=== PATIENT | male | born 1975 | race African-American/Black ===

== ENCOUNTER 2025-04-18 18:46 | Emergency (ER) | payer MEDICAID ==
[~2025-04-18] VITALS: Ht 175.3 cm; Wt 134.4 kg
[~2025-04-18 18:46] MED LIST: CELE-193 PO; CYCL-394 PO; HYDR12.522 PO
--- NOTE | 2025-04-18 20:50 | Physician Documentation ---
History of Present Illness ~ Chief Complaint: Medical Clearance Stated Complaint: "I NEED A NOTE TO GET INTO DETOX TONIGHT" Time Seen by MD: 20:44 Primary Medical Doctor: Julian Mode of Arrival: POV HPI This is a 50-year-old male with history of methamphetamine abuse who presents requesting medical clearance to enter [facility], patient reports no other drug use including no opioids or alcohol. Patient reports last use of methamphetamine one day prior. Patient reports only other past medical history is hypertension which he is compliant with prescribed medications. Patient reports no other acute symptoms or concerns and reports feels otherwise well. Tetanus within 5 years?: Yes Medication Reconciliation Allergies: Coded Allergies: No Known Allergies (Unverified , 04/18/25) Scheduled Celecoxib* (Celebrex*), 100 MG PO BID Cyclobenzaprine HCl (Cyclobenzaprine HCl), 10 MG PO TID PRN MUSCLE SPASM Hydrochlorothiazide* (Microzide*), 25 MG PO DAILY Past Medical History Past Medical History: Hypertension, Sleep Apnea Past Surgical History: orthopedic surgeries Alcohol Use: None Drug Use: marijuana, methamphetamine Review of Systems ROS As stated above in the HPI, otherwise all systems are reviewed and negative. Physical Exam Vital Signs: Temperature: 98.0, Heart Rate: 76, Respiratory Rate: 16, BP: 170/93, Pulse Oximetry: 99, Weight: 134.450 Oxygen Flow Rate: 0 Physical Exam VITALS: Reviewed and as above. GENERAL: Alert oriented x4, nontoxic appearing, no apparent distress. HEENT: PERRLA, EOMI RESPIRATORY: No increased work of breathing, no respiratory distress, speaking in full clear sentences, clear lung sounds in all [place] CV: Regular rate and rhythm no murmur BACK: No CVA tenderness GI: Soft, nontender, no rebound, no guarding, bowel sounds present MUSCULOSKELETAL: NEURO: No tremor PSYCH: Normal mood and affect, no agitation, no statements of SI or HI Progress Results/Orders Results/Orders Vital Signs 04/18/25 04/18/25 04/18/25 18:56 19:55 21:10 Temp 98.0 98.3 Pulse 76 78 Resp 18 16 16 B/P (MAP) 170/93 162/82 Pulse Ox 99 99 O2 Flow Rate 0 Medical Decision Making Findings This 50-year-old male with history of methamphetamine abuse presented requesting medical clearance to enter rehab program, patient reported no other acute symptoms or concerns. As patient reported no history of alcohol or opioid abuse and is not displaying any evidence of clinical withdrawal it have low suspicion for risk of opioid or alcohol withdrawal causing complications, patient is well- appearing with benign physical exam and appropriate for outpatient follow up. Patient is medically cleared to enter rehab program. Patient provided return to care precautions which he verbalized understanding of. Differential Dx:Considerations: Include: Intoxication-Alcohol, Intoxication-O ther drug, Personality disorder, Substance abuse disorder, Alcohol withdrawl syndrom Departure Time of Disposition: 20:49 Disposition: 01 HOME / SELF CARE / HOMELESS Impression: Primary Impression: General medical exam Additional Impression: History of methamphetamine abuse Condition: Improved Discharge Instructions: Medical Screening Exam Additional Instructions: You are medically cleared to enter [facility] as there was no evidence of an acute medical condition that would preclude you from participating in this rehab program. Please follow up with your primary care provider or [facility] in the next few days. Please return to the emergency department for any new or worsening con cerning symptoms. Referrals: NO PRIMARY CARE PROVIDER (PCP) Education Educated: Patient Educated regarding: diagnosis, treatment, prognosis Signature Scribe Signature: No scribe Attestation: The note accurately reflects work and decisions made by me.ISELA Shane 04/19/25 01:46 AYAD CARY Apr 18, 2025 20:50
[2025-04-18 21:10] VITALS: BP 162/82; PULSE 78; RESP 16; TEMP 98.3; O2SAT 99
== END 2025-04-18 21:11 | disposition home or self-care (01) ==
LOC: ER 18:47
DX: Z02.9 Encounter for administrative examinations, unspecified (principal); I10 Essential (primary) hypertension; G47.30 Sleep apnea, unspecified; F15.10 Other stimulant abuse, uncomplicated; Z79.899 Other long term (current) drug therapy
CPT/HCPCS: 99281; 99282